=== PATIENT | female | born 1995 | race American Indian/Alaskan Native ===

== ENCOUNTER 2019-07-28 23:55 | Observation (INO) | payer BC ==
[2019-07-29 00:37] VITALS: BP 119/59
--- NOTE | 2019-07-29 02:34 | Ultrasound Report ---
CLINICAL DATA: Premature Rupture of Membranes TECHNICAL DATA: Document breath, motion, gestational age, tone, and fluid. FINDINGS: respiration, tone, and motion are observed. Absent or no episodes of breathin g 30 seconds during 30 minutes was noted. Amniotic fluid volume is normal. Biophysical profile score is 6/8. The lower uterine segment is evaluated and there is no evidence of placenta previa. heart rate is 136. IMPRESSION: The biophysical profile score is 6/8. Signer Name: Ned Peña MD Signed: 07/29/2019 2:30 AM Workstation Name: [id number]
--- NOTE | 2019-07-29 02:38 | Ultrasound Report ---
ULTRASOUND OBSTETRIC INDICATION / CLINICAL INFORMATION: Premature Rupture of Membranes. Clinical Gestational Age (GA): TECHNIQUE: Transabdominal. COMPARISON: None available. FINDINGS: There is a single intrauterine , cephalic presentation. Biparietal Diameter = 5.3 cm = 22 weeks, 0 day(s). Head Circumference = 18.6 cm = 21 weeks, 0 day(s). Abdominal Circumference = 16.0 cm = 21 weeks, 1 day(s). Femur Length = 3.5 cm = 21 weeks, 1 day(s). Average Ultrasound Age (AUA) = 21 weeks, 2 day(s). Heart Rate: 136 beats per minute. Estimated Weight in grams (if calculated): 4 0 3 g Position: cephalic. Cervix: closed. Length in cm (2.84): Placenta: posterior and free of the os. Amniotic Fluid Volume: normal Amniotic Fluid Index (AVIS) in cm (if calculated): 15.2. Maternal Adnexa: No significant abnormality. IMPRESSION: 1. Single, living intrauterine with estimated sonographic age of 21 weeks, 2 day(s). 2. No significant sonographic abnormality. Signer Name: Ned Peña MD Signed: 07/29/2019 2:33 AM Workstation Name: [id number]
== END 2019-07-29 03:00 | disposition home or self-care (01) ==
LOC: TRG 23:55 → LD 07-29 00:15
PROVIDERS: ADMIT Obstetrics & Gynecology; ATTEND Obstetrics & Gynecology
DX: O42.912 Preterm premature rupture of membranes, unspecified as to length of time between rupture and onset of labor, second trimester (principal); Z3A.21 21 weeks gestation of pregnancy
CPT/HCPCS: 76816; 76819; G0378

== ENCOUNTER 2019-08-12 15:15 | Inpatient (IN) | payer BC ==
--- NOTE | 2019-08-12 16:09 | History and Physical Report ---
History of Present Illness Date of examination: 08/12/19 (My water broke two weeks ago, but I am no longer leaking fluid.) Date of admission: 08/12/19 15:15 Chief complaint: My water has been broken for 2 weeks. After I had my surgery for my twins, I was told to take Procardia 20 mg two times a day. I've been taking this for a month now and if has not affected me. I was told that it was to stop contractions and for the baby's heart. Then after the surgery one of my twins . History of present illness: Office Note from visit on July: Chief Complaint / Current Status: C/o leaking fluid 22w 1d Pt is sleeping with a pad and depends on and states both have been soaked when she gets up in the mornings. Pt has demise of Baby B 07/16/19. Her surgery in [facility] was 07/15/19. She states they told her there was a good chance of ROM following the procedure for TTTS. Twin gestation Mo/Di. Pt reports good FM of surviving twin. Was seen @ [facility] yesterday and told the fluid was less but still there around surviving baby. Discussed in depth with pt @ viability, monitoring of temp, hydration and pelvic rest. Will avoid hospitalization @ this time d/t covid-19. Pt agrees with POC. Dr Ndiaye came in and spoke with pt. Will get AVIS today and then follow up as scheduled with AMFM and MYOBGYN. All questions were addressed. AMFM report scaned into EMR They noted an AVIS of 6.3. US done in office today estimated AVIS 10, noted good FM on US. ROM confirmed in office with SSE +pooling, Nitrazine, and ferning. AMFM made aware EDC Confirmation: 12/06/2019 Gestational Age: 6 2/7 weeks Past History : 2 Term Births: 1 Premature Births: 0 Living Children: 1 Para: 1 Mult. Births: 0 Prev : 0 Prev. attempt? 0 Aborta: 0 Elect. Ab: 0 Spont. Ab: 0 Ectopics: 0 # 1 Delivery date: 05/02/2018 Weeks Gestation: 41+2 Delivery type: Vaginal Anesthesia type: epidural Delivery location: [facility] Sex: female weight: 7.94 Name: Farzana Comments: none Past Medical History: Reviewed history from 08/04/2017 and no changes required: Negative Past Medical History Past Surgical History: Reviewed history from 08/04/2017 and no changes required: Negative Past Surgical History Past Medical History Abnormal PAP: negative Social Hx: see hpi Infection History Hx of STD: none HIV Risk Eval: no Hepatitis B Risk Eval: low risk Personal hx. of genital herpes: no Partner hx. of genital herpes: no Rash, Viral, or Febrile illness since last LMP? 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, FOC tested neg Child w/other defect Mom: no Dad: no Enviromental Exposures Xray Exposure: no Medication, drug, or alcohol use since LMP: no Chemical/Other Exposure: no Exposure to Cat Liter: no Hx of Parvovirus (Fifth Disease): no Occupational Exposure to Children: none Active Medications (reviewed today): ORTHO MICRONOR 0.35 MG ORAL TABLET (NORETHINDRONE) 1 tablet PO daily DEPO-PROVERA 150 MG/ML INTRAMUSCULAR SUSPENSION (MEDROXYPROGESTERONE ACETATE) 1 inj x every 12 weeks DEPO-PROVERA 150 MG/ML INTRAMUSCULAR SUSPENSION (MEDROXYPROGESTERONE ACETATE) Current Allergies (reviewed today): No known allergies Past History Past Medical History: no pertinent history Past Surgical History: no surgical history Family/Genetic History: none Social history: no significant social history - Obstetrical History Expected Date of Delivery: 12/06/19 Actual Gestation: 23 Week(s) 3 Day(s) : 2 Para: 1 Hx # Term Pregnancies: 0 Number of Pregnancies: 1 Spontaneous Abortions: 0 Induced : 0 Number of Living Children: 1 Medications and Allergies Allergies Allergy/AdvReac Type Severity Reaction Status Date / Time No Known Allergies Allergy Verified 04/11/18 07:52 Home Medications Medication Instructions Recorded Confirmed Last Taken Type Vit-Fe Fumar-FA [ 1 tab PO QDAY 07/29/19 07/29/19 1 Day Ago History Vitamin] ~07/28/19 Procardia 20 mg PO Q6HR 07/29/19 07/29/19 1 Day Ago History ~07/28/19 Review of Systems All systems: negative - Vital Signs Vital signs: Vital Signs Pulse BP 103 H 123/67 08/12/19 15:38 08/12/19 15:38 Temp Pulse Resp BP Pulse Ox 98.2 F 98 H 123/67 100 08/12/19 15:47 08/12/19 16:06 08/12/19 15:38 08/12/19 16:06 - Physical Exam Breasts: Positive: deferred Cardiovascular: Regular rate, Normal S1, Normal S2 Lungs: Positive: Normal air movement Abdomen: Positive: normal appearance, soft (No tenderness noted), normal bowel sounds Genitourinary (Female): Positive: normal external genitalia, normal perenium Vulva: both: normal Vagina: Positive: normal moisture. Negative: discharge Cervix: Positive: other (Cervical exam deferred d/t s/p PPROM for approximately 2 weeks. Pt currently denies LOF.) Uterus: Positive: normal size, normal contour Anus/Rectum: Positive: normal perianal skin, heme negative. Negative: rectal mass, hemorrhoids Extremities: Deep Tendon Reflex Grade: Normal +2 - Obstetrical FHR: category 1 FHR comments: Appropriate for gestational age. Uterine Contraction Monitor Mode: External Uterine Contraction Frequency (min): None Noted Uterine Contraction Pattern: Absent Results Result Diagrams: 08/12/19 15:52 All other labs normal. GBS UNKNOWN HBsAg Screen Negative Negative *1 RPR Non Reactive Non Reactive *2 Rubella Antibodies, IgG 1.24 index Immune >0.99 *3 Non-immune <0.90 Equivocal 0.90 - 0.99 Immune >0.99 ABO Grouping B *4 Rh Factor Positive *5 Please note: Prior records for this patient's ABO / Rh type are not available for additional verification. Antibody Screen Negative Negative *6 WBC 5.5 x10E3/uL 3.4-10.8 *7 RBC 4.41 x10E6/uL 3.77-5.28 *8 Hemoglobin 12.3 g/dL 11.1-15.9 *9 Hematocrit 38.2 % 34.0-46.6 *10 MCV 87 fL 79-97 *11 MCH 27.9 pg 26.6-33.0 *12 MCHC 32.2 g/dL 31.5-35.7 *13 RDW 14.4 % 12.3-15.4 *14 Effective May 16, 2019, the RDW pediatric reference interval will be removed and the adult reference interval will be changing to: Female 11.7 - 15.4 Male 11.6 - 15.4 Platelets 297 x10E3/uL 150-450 *15 Neutrophils 56 % Not Estab. *16 Lymphs 31 % Not Estab. *17 Monocytes 10 % Not Estab. *18 Eos 2 % Not Estab. *19 Basos 1 % Not Estab. *20 ! Immature Cells <No Reported Value> *21 Neutrophils (Absolute) 3.2 x10E3/uL 1.4-7.0 *22 Lymphs (Absolute) 1.7 x10E3/uL 0.7-3.1 *23 Monocytes(Absolute) 0.5 x10E3/uL 0.1-0.9 *24 Eos (Absolute) 0.1 x10E3/uL 0.0-0.4 *25 Baso (Absolute) 0.0 x10E3/uL 0.0-0.2 *26 ! Immature Granulocytes 0 % Not Estab. *27 ! Immature Grans (Abs) 0.0 x10E3/uL 0.0-0.1 *28 ! NRBC <No Reported Value> *29 Hematology Comments: <No Reported Value> *30 Tests: (2) HB Solu + Rflx [facility] ([id number]) Hemoglobin (Hgb) Solubility Negative Negative *31 Tests: (3) Panel 588400 ([id number]) HIV Screen 4th Generation wRfx Non Reactive Non Reactive *32 Tests: (4) HCV Ab w/Rflx to Verification (271980) ! HCV Ab <0.1 s/co ratio 0.0-0.9 *33 Tests: (5) Comment: ([id number]) ! Comment: SPR[facility] *34 Non reactive HCV antibody screen is consistent with no HCV infection, unless recent infection is suspected or other evidence exists to indicate HCV infection. Tests: (6) Urine Culture, Routine ([id number]) Urine Culture, Routine Final report *35 Tests: (7) Result ([id number]) ! Result 1 No growth *36 Assessment and Plan A: 23 y.o. 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 P: Plan of care made with Dr. Leos based off recommendations from Dr. Martinez ([facility]). Admission to antepartum Antibiotics for latency Monitor maternal and status NICU consult [facility] consult, they will continue to see pt during admission Betamethasone to be given [facility] recommendation of delivery by 34 weeks gestation - Patient Problems (1) Ruptured membranes, prolonged Onset Date: ~07/31/19 Current Visit: Yes Status: Acute Plan to address problem: Latency antibiotics ordered Monitor maternal temperature Monitor labs as needed (2) Twin gestation in second trimester Current Visit: Yes Status: Acute Qualifiers: Multiple gestation type: monochorionic and diamniotic Qualified Code(s): O30.032 - Twin , monochorionic/diamniotic, second trimester Plan to address problem: Monitor status. One twin IUFD
[2019-08-12] MEDS ORDERED: diphenhydrAMINE 25 MG CAP PO PRN (16:37)
[2019-08-12] MEDS ORDERED: ONDANSETRON 4 MG/2 ML INJ IV PRN (16:37)
[2019-08-12] MEDS ORDERED: DOCUSATE SODIUM 100 MG CAP PO PRN (16:37)
[2019-08-12] MEDS ORDERED: ALUM-MAG HYDROXIDE-SIMETHICONE 200-200-20MG/5ML ORAL LIQD 30 ML PO PRN (16:37)
[2019-08-12] MEDS ORDERED: ACETAMINOPHEN 325 MG TAB PO PRN (16:37)
--- NOTE | 2019-08-12 17:01 | Event Note ---
Date: 08/12/19 Pt sent in for admission and conservative management of prolonged ROM at 24.4 weeks. Pt confirmed SROM in our office via exam on 08/03/2019 and at this time was noted to have an AVIS of 10. Decision was made due to pt gestational age to manage expectant as an outpt. She was given precautions for chorio advised to check her temp and keep all apt with MFM. When seen by Dr. Martinez today, the fluid levels were lower. As per Dr. Smith pt desires for "everything to be done" in the management of the at this time. Will follow rec ommendations set forth by [facility].
[2019-08-12] MEDS: BETAMET ACET/BETAMET NA PH 6 MG/ML INJ 5 ML MDV IM SCH (17:10)
[2019-08-12] MEDS: AMPICILLIN/NS 2 GM/100 ML 2 GM/100 ML BAG IV SCH (17:12)
[2019-08-12] MEDS: LACTATED RINGERS 1,000 ML IV SCH (17:13)
[2019-08-12 17:37] LABS: Basophils % (Auto) 0.1 % (0.0-1.8); Eosinophils # (Auto) 0.2 K/mm3 (0.0-0.4); Hematocrit 31.8 % (30.3-42.9); Hemoglobin 10.5 gm/dl (10.1-14.3); Lymphocytes # (Auto) 1.6 K/mm3 (1.2-5.4); Lymphocytes % (Auto) 19.6 % (13.4-35.0); Mean Corpuscular HGB Conc 33 % (30-34); Mean Corpuscular Volume 86 fl (79-97); Monocytes # (Auto) 0.6 K/mm3 (0.0-0.8); Platelet Count 351 K/mm3 (140-440); Red Blood Count 3.71 M/mm3 (3.65-5.03); Red Cell Distribution Width 14.1 % (13.2-15.2)
--- NOTE | 2019-08-12 18:57 | Consultation ---
Consult Note - Parent Education I met with parent(s) and discussed the following:: Need for NICU admission, Poss ible need for intubation and surfactant or other resp support, Temperature regulation, Head ultrasounds to evaluate IVH, Eye exams for ROP screening, Possible need for IV fluids/TPN and IV antibiotics, Possible need for umbilical lines, Importance of providing breast milk & encouraged pumping aft delivery, Donor breast milk if baby meets criteria after , Slow feeding advancement and monitoring of tolerance. NG/OG feeds, Need to monitor for jaundice, Data for survival & survival without significant co-morbidities Parent(s) demonstrated understanding of all the information:: Yes Assessment and Plan - Assessment Gestation:: 24 - Plan Plan: Agree with Mag & steroids Will attend delivery Please call NICU with questions
[2019-08-12] MEDS: NIFEdipine*For Tocolysis only* 10 MG CAPSULE PO SCH (21:55)
[2019-08-13] MEDS: AMPICILLIN/NS 2 GM/100 ML 2 GM/100 ML BAG IV SCH ×5 (00:22→23:37)
[2019-08-13] MEDS: ERYTHROMYCIN LACTOBIONATE 250 MG in SODIUM CHLORIDE 0.9% 100 ML IV SCH ×3 (01:38→17:18)
[2019-08-13] MEDS: LACTATED RINGERS 1,000 ML IV SCH ×3 (02:48→23:38)
[2019-08-13] MEDS: NIFEdipine*For Tocolysis only* 10 MG CAPSULE PO SCH ×2 (10:57→21:40)
[2019-08-13] MEDS: PRENATAL VIT27-FE FUMARATE-FOLIC ACID VIT TAB PO SCH (10:58)
--- NOTE | 2019-08-13 12:13 | Progress Note ---
Assessment and Plan - Patient Problems (1) premature rupture of membranes Current Visit: Yes Status: Acute Qualifiers: PROM onset of labor timing: unspecified duration between rupture of membranes and onset of labor Qualified Code(s): O42.919 - premature rupture of membranes, unspecified as to length of time between rupture and onset of labor, unspecified trimester Plan to address problem: Patient is now stable with no evidence of infections and no signs of labor. She is status post 1 dose of betamethasone with the second time scheduled for this evening. We will continue observation. Had long discussion patient with long-term care discussed indications with delivery plan is to continue expectant management for now. 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 Objective - Exam Narrative Exam: heart tracing is consistent with a early gestational age. No contractions detected. - Constitutional Vitals: Vital Signs - 12hr 08/13/19 08/13/19 08/13/19 00:10 00:15 00:20 Temperature Pulse Rate 93 H 96 H 104 H Respiratory Rate Blood Pressure O2 Sat by Pulse 97 96 99 Oximetry 08/13/19 08/13/19 08/13/19 00:25 00:30 00:35 Temperature Pulse Rate 96 H 91 H 98 H Respiratory Rate Blood Pressure O2 Sat by Pulse 100 98 98 Oximetry 08/13/19 08/13/19 08/13/19 00:40 00:45 00:50 Temperature Pulse Rate 98 H 86 90 Respiratory Rate Blood Pressure O2 Sat by Pulse 98 99 99 Oximetry 08/13/19 08/13/19 08/13/19 00:55 01:00 01:05 Temperature Pulse Rate 90 95 H 94 H Respiratory Rate Blood Pressure O2 Sat by Pulse 98 97 97 Oximetry 08/13/19 08/13/19 08/13/19 01:10 01:15 01:20 Temperature Pulse Rate 90 92 H 94 H Respiratory Rate Blood Pressure O2 Sat by Pulse 97 97 98 Oximetry 08/13/19 08/13/19 08/13/19 01:25 01:30 01:35 Temperature Pulse Rate 89 84 83 Respiratory Rate Blood Pressure O2 Sat by Pulse 99 100 99 Oximetry 08/13/19 08/13/19 08/13/19 01:40 01:45 01:50 Temperature Pulse Rate 82 82 88 Respiratory Rate Blood Pressure O2 Sat by Pulse 99 100 100 Oximetry 08/13/19 08/13/19 08/13/19 01:55 02:00 02:05 Temperature Pulse Rate 81 83 76 Respiratory Rate Blood Pressure O2 Sat by Pulse 99 99 98 Oximetry 08/13/19 08/13/19 08/13/19 02:10 02:19 02:24 Temperature Pulse Rate 64 89 86 Respiratory Rate Blood Pressure O2 Sat by Pulse 99 98 99 Oximetry 08/13/19 08/13/19 08/13/19 02:29 02:34 02:39 Temperature Pulse Rate 87 88 99 H Respiratory Rate Blood Pressure O2 Sat by Pulse 99 99 100 Oximetry 08/13/19 08/13/19 08/13/19 02:44 02:49 02:54 Temperature Pulse Rate 87 89 91 H Respiratory Rate Blood Pressure O2 Sat by Pulse 99 98 98 Oximetry 08/13/19 08/13/19 08/13/19 02:57 02:59 03:04 Temperature Pulse Rate 94 H 101 H 90 Respiratory Rate Blood Pressure O2 Sat by Pulse 93 100 99 Oximetry 08/13/19 08/13/19 08/13/19 03:09 03:14 03:19 Temperature Pulse Rate 89 75 86 Respiratory Rate Blood Pressure O2 Sat by Pulse 98 98 100 Oximetry 08/13/19 08/13/19 08/13/19 03:24 03:29 03:34 Temperature Pulse Rate 85 90 86 Respiratory Rate Blood Pressure O2 Sat by Pulse 99 100 99 Oximetry 08/13/19 08/13/19 08/13/19 03:38 03:39 03:44 Temperature Pulse Rate 88 81 86 Respiratory Rate Blood Pressure O2 Sat by Pulse 93 99 96 Oximetry 08/13/19 08/13/19 08/13/19 03:49 03:52 03:54 Temperature Pulse Rate 84 79 83 Respiratory Rate Blood Pressure O2 Sat by Pulse 97 91 90 Oximetry 08/13/19 08/13/19 08/13/19 03:57 03:59 04:04 Temperature Pulse Rate 92 H 90 96 H Respiratory Rate Blood Pressure O2 Sat by Pulse 81 L 96 96 Oximetry 08/13/19 08/13/19 08/13/19 04:05 04:09 04:12 Temperature Pulse Rate 86 91 H 90 Respiratory Rate Blood Pressure O2 Sat by Pulse 94 96 91 Oximetry 08/13/19 08/13/19 08/13/19 04:14 04:19 04:24 Temperature Pulse Rate 78 85 71 Respiratory Rate Blood Pressure O2 Sat by Pulse 95 98 95 Oximetry 08/13/19 08/13/19 08/13/19 04:26 04:29 04:34 Temperature Pulse Rate 73 77 87 Respiratory Rate Blood Pressure O2 Sat by Pulse 94 95 98 Oximetry 08/13/19 08/13/19 08/13/19 04:39 05:06 05:11 Temperature Pulse Rate 93 H 98 H 103 H Respiratory Rate Blood Pressure O2 Sat by Pulse 100 100 99 Oximetry 08/13/19 08/13/19 08/13/19 05:16 05:21 05:26 Temperature Pulse Rate 89 100 H 86 Respiratory Rate Blood Pressure O2 Sat by Pulse 100 97 100 Oximetry 08/13/19 08/13/19 08/13/19 05:31 05:36 05:41 Temperature Pulse Rate 77 76 68 Respiratory Rate Blood Pressure O2 Sat by Pulse 100 100 99 Oximetry 08/13/19 08/13/19 08/13/19 05:46 05:51 05:56 Temperature Pulse Rate 63 66 73 Respiratory Rate Blood Pressure O2 Sat by Pulse 99 98 99 Oximetry 08/13/19 08/13/19 08/13/19 06:01 06:06 06:11 Temperature Pulse Rate 78 88 62 Respiratory Rate Blood Pressure O2 Sat by Pulse 99 99 99 Oximetry 08/13/19 08/13/19 08/13/19 06:16 06:21 06:26 Temperature Pulse Rate 63 63 64 Respiratory Rate Blood Pressure O2 Sat by Pulse 99 99 99 Oximetry 04/04/20 04/04/20 04/04/20 06:31 06:36 06:41 Temperature Pulse Rate 78 68 78 Respiratory Rate Blood Pressure O2 Sat by Pulse 98 99 99 Oximetry 08/13/19 08/13/19 08/13/19 06:46 06:51 06:56 Temperature Pulse Rate 61 60 62 Respiratory Rate Blood Pressure O2 Sat by Pulse 99 99 99 Oximetry 08/13/19 08/13/19 08/13/19 07:01 07:06 07:11 Temperature Pulse Rate 58 L 59 L 63 Respiratory Rate Blood Pressure O2 Sat by Pulse 99 99 99 Oximetry 08/13/19 08/13/19 08/13/19 07:14 07:16 07:21 Temperature Pulse Rate 84 64 63 Respiratory Rate Blood Pressure O2 Sat by Pulse 87 100 100 Oximetry 08/13/19 08/13/19 08/13/19 07:26 07:27 07:31 Temperature Pulse Rate 68 79 62 Respiratory Rate Blood Pressure O2 Sat by Pulse 100 93 100 Oximetry 08/13/19 08/13/19 08/13/19 07:36 07:41 07:46 Temperature Pulse Rate 78 62 60 Respiratory Rate Blood Pressure O2 Sat by Pulse 100 100 100 Oximetry 08/13/19 08/13/19 08/13/19 07:51 07:56 08:01 Temperature Pulse Rate 54 L 58 L 60 Respiratory Rate Blood Pressure O2 Sat by Pulse 99 100 100 Oximetry 08/13/19 08/13/19 08/13/19 08:06 08:11 08:16 Temperature Pulse Rate 62 61 61 Respiratory Rate Blood Pressure O2 Sat by Pulse 100 100 99 Oximetry 08/13/19 08/13/19 08/13/19 08:21 08:26 08:31 Temperature Pulse Rate 60 66 52 L Respiratory Rate Blood Pressure O2 Sat by Pulse 100 100 99 Oximetry 08/13/19 08/13/19 08/13/19 08:36 08:41 08:46 Temperature Pulse Rate 60 70 60 Respiratory Rate Blood Pressure O2 Sat by Pulse 100 100 100 Oximetry 08/13/19 08/13/19 08/13/19 08:51 08:56 09:01 Temperature Pulse Rate 68 95 H 60 Respiratory Rate Blood Pressure O2 Sat by Pulse 99 97 100 Oximetry 08/13/19 08/13/19 08/13/19 09:06 09:11 09:16 Temperature Pulse Rate 69 60 61 Respiratory Rate Blood Pressure O2 Sat by Pulse 100 100 99 Oximetry 08/13/19 08/13/19 08/13/19 09:21 09:24 09:26 Temperature Pulse Rate 76 66 103 H Respiratory Rate Blood Pressure O2 Sat by Pulse 99 90 97 Oximetry 08/13/19 08/13/19 08/13/19 09:32 10:43 10:48 Temperature Pulse Rate 92 H Respiratory Rate Blood Pressure 114/61 O2 Sat by Pulse 99 89 70 L Oximetry 08/13/19 08/13/19 08/13/19 10:51 10:52 10:53 Temperature 98.1 F Pulse Rate 161 H Respiratory 17 Rate Blood Pressure O2 Sat by Pulse 79 L 78 L Oximetry 08/13/19 08/13/19 08/13/19 10:57 11:02 11:07 Temperature Pulse Rate 81 91 H 75 Respiratory Rate Blood Pressure O2 Sat by Pulse 100 99 100 Oximetry 08/13/19 08/13/19 08/13/19 11:12 11:17 11:22 Temperature Pulse Rate 71 71 79 Respiratory Rate Blood Pressure O2 Sat by Pulse 99 100 100 Oximetry 08/13/19 08/13/19 08/13/19 11:27 11:32 11:37 Temperature Pulse Rate 78 75 95 H Respiratory Rate Blood Pressure O2 Sat by Pulse 100 100 100 Oximetry 08/13/19 08/13/19 08/13/19 11:42 11:47 11:52 Temperature Pulse Rate 107 H 116 H 114 H Respiratory Rate Blood Pressure O2 Sat by Pulse 100 100 100 Oximetry 08/13/19 08/13/19 08/13/19 11:57 12:02 12:07 Temperature Pulse Rate 113 H 110 H 103 H Respiratory Rate Blood Pressure O2 Sat by Pulse 100 100 100 Oximetry General appearance: Present: no acute distress - Respiratory Respiratory effort: normal - Breasts Breasts: deferred - Cardiovascular Rhythm: regular Extremities: no ischemia, No edema - Gastrointestinal General gastrointestinal: Present: soft, non-tender Rectal Exam: deferred - Genitourinary Female genitourinary: deferred - Integumentary Integumentary: clear, warm, dry - Psychiatric Psychiatric: memory intact, appropriate mood/affect, intact judgment & insight - Labs CBC & Chem 7: 08/12/19 15:52 Labs: Abnormal lab results 08/12/19 Range/Units 15:52 Seg Neutrophils % 71.3 H (40.0-70.0) % Medications & Allergies - Medications Allergies/Adverse Reactions: Allergies No Known Allergies Allergy (Verified 04/11/18 07:52) Home Medications: Home Medications Medication Instructions Recorded Confirmed Last Taken Type Vit-Fe Fumar-FA [ 1 tab PO QDAY 07/29/19 07/29/19 1 Day Ago History Vitamin] ~07/28/19 Procardia 20 mg PO Q6HR 07/29/19 07/29/19 1 Day Ago History ~07/28/19 Active Medications: Generic Name Dose Route Start Last Admin Trade Name Freq PRN Reason Stop Dose Admin Acetaminophen 650 mg 08/12/19 16:37 Tylenol PO Q4H PRN Pain MILD(1-3)/Fever >100.5/CHI Al Hydrox/Mg Hydrox/Simethicone 30 ml 08/12/19 16:37 Alum-Mag Hydrox-Simeth [id number]/5ml PO Q6H PRN Indigestion Betamethasone Acet/Betameth SodPhos 12 mg 08/12/19 17:00 08/12/19 17:10 Celestone Soluspan IM 08/13/19 17:01 12 mg Q24H MU Administration Diphenhydramine HCl 25 mg 08/12/19 16:37 Benadryl PO Q6H PRN Itching Docusate Sodium 100 mg 08/12/19 16:37 Colace PO Q12H PRN Constipation Erythromycin 250 mg 08/14/19 22:00 Erythromycin Base PO 08/19/19 21:59 Q8HR MU Protocol Lactated Ringer's 1,000 mls @ 125 mls/hr 08/12/19 17:00 08/13/19 02:48 Lactated Ringers IV 125 mls/hr DIRECT MU Administration Ampicillin Sodium 2 gm in 100 mls @ 100 mls/hr 08/12/19 18:00 08/13/19 06:22 Ampicillin/Ns 2 Gm/100 Ml IV 08/14/19 12:59 100 mls/hr Q6HR MU Administration Protocol Erythromycin Lactobionate 250 100 mls @ 100 mls/hr 08/12/19 18:00 08/13/19 11:26 mg/ Sodium Chloride IV 08/14/19 12:59 100 mls/hr Q6HR MU Administration Protocol Multivitamins/Iron/Calcium 1 each 08/13/19 10:00 08/13/19 10:58 Vitamin PO 1 each QDAY MU Administration Nifedipine 20 mg 08/12/19 22:00 08/13/19 10:57 Procardia*For Tocolysis Only* PO 20 mg BID MU Administration Ondansetron HCl 4 mg 08/12/19 16:37 Zofran IV Q6H PRN Nausea And Vomiting
[2019-08-13] MEDS: BETAMET ACET/BETAMET NA PH 6 MG/ML INJ 5 ML MDV IM SCH (17:14)
[2019-08-14] MEDS: ERYTHROMYCIN LACTOBIONATE 250 MG in SODIUM CHLORIDE 0.9% 100 ML IV SCH ×2 (00:52→06:38)
[2019-08-14 11:23] VITALS: BP 114/62
[2019-08-14] MEDS: PRENATAL VIT27-FE FUMARATE-FOLIC ACID VIT TAB PO SCH (11:38)
[2019-08-14] MEDS: NIFEdipine*For Tocolysis only* 10 MG CAPSULE PO SCH (11:39)
--- NOTE | 2019-08-14 11:47 | Discharge Summary ---
Providers - Providers Date of Admission: 08/12/19 15:15 Date of discharge: 08/14/19 Attending physician: CHANCE MOREIRA 08/12/19 17:06 Consult to Physician [CONS] Urgent Comment: Consulting Provider: ZULEIMA CLARK Physician Instructions: Reason For Exam: 23 weeks, twin gestation, one twin IUFD, PPROM 08/12/19 17:51 Consult to Physician [CONS] Routine Comment: Consulting Provider: SATISH LUNA Physician Instructions: Reason For Exam: 23 wks pprom known to practice Primary care physician: PIPE CUTTER Hospitalization Reason for admission: premature rupture membranes Condition: Good Procedures: monitoring. Neonatology consult. Perinatology consult. Hospital course: Please see patient's history and physical for details. Patient was admitted for prophylactic antibiotic therapy and betamethasone therapy. Throughout her stay the patient did not have any further leaking of fluid. Patient remained afebrile throughout her stay. Patient had rare uterine contractions. Patient received 2 doses of betamethasone. At time of discharge even though patient and nurse tells me that Dr. Luna the perinatologist that seen her on yesterday there was not a note available but patient and her nurse conveyed that the Dr. Luna agree with recommendation for discharge home with follow-up in their office on tomorrow. Patient also was seen neonatology team and had her questions answered. Disposition: [id number] TO HOME OR SELFCARE - Discharge Diagnoses (1) premature rupture of membranes Status: Acute Qualifiers: PROM onset of labor timing: unspecified duration between rupture of membranes and onset of labor Qualified Code(s): O42.919 - premature rupture of membranes, unspecified as to length of time between rupture and onset of labor, unspecified trimester (2) Ruptured membranes, prolonged Status: Acute (3) Twin to twin transfusion in second trimester Status: Acute (4) Twin preg w/ loss/retention one fetus, antepartum complication Status: Acute (5) Twin gestation in second trimester Status: Acute Qualifiers: Multiple gestation type: monochorionic and diamniotic Qualified Code(s): O30.032 - Twin , monochorionic/diamniotic, second trimester Core Measure Documentation - Palliative Care Palliative Care/ Comfort Measures: Not Applicable - Core Measures Any of the following diagnoses?: none Exam - Constitutional Vitals: Temp Pulse Resp BP Pulse Ox 97.9 F 66 18 114/62 13 L 08/14/19 11:22 08/14/19 11:22 08/14/19 11:22 08/14/19 11:22 08/14/19 09:24 General appearance: Present: no acute distress - Respiratory Respiratory effort: normal - Cardiovascular Rhythm: regular - Extremities Extremities: no ischemia, pulses intact - Abdominal General gastrointestinal: Present: soft, non-tender Female genitourinary: Present: deferred - Rectal Rectal Exam: deferred - Integumentary Integumentary: Present: clear, warm, dry - Musculoskeletal Musculoskeletal: strength equal bilaterally - Psychiatric Psychiatric: appropriate mood/affect, intact judgment & insight - Neurologic Neurologic: moves all extremities Plan Activity: other (Patient follow Yvonne 19 stay at home precautions) Diet: regular Additional Instructions: Patient is to keep her appointment with [facility] on tomorrow and our appointment on 25 August. Patient to call for fever chills nausea vomiting and signs and symptoms of labor. Follow up with: PRIMARY CARE, [Primary Care Provider] - 7 Days Prescriptions: Erythromycin Base [Erythromycin 250MG MELA LOVETT] 250 mg PO Q8H #42 capsule.
[2019-08-14] MEDS ORDERED: ERYTHROMYCIN BASE 250 MG CAPSULE DR PO SCH (22:00)
== END 2019-08-14 13:00 | disposition home or self-care (01) | DRG 833 ==
LOC: LD 15:15
PROVIDERS: ADMIT Obstetrics & Gynecology; ATTEND Obstetrics & Gynecology
DX: O30.032 Twin pregnancy, monochorionic/diamniotic, second trimester (principal); O42.919 Preterm premature rupture of membranes, unspecified as to length of time between rupture and onset of labor, unspecified trimester; O43.022 Fetus-to-fetus placental transfusion syndrome, second trimester; Z3A.24 24 weeks gestation of pregnancy
CPT/HCPCS: 36415; 85025; 86592; 86850; 86900; 86901; G0378; J0290; J0702; J1364; J7120